=== PATIENT | female | born 1940 | race Caucasian/White ===

== ENCOUNTER → 2017-09-25 | Outpatient (CLI) | payer MEDICARE ==
[~2017-09-25] MED LIST: ASPI-516 CHEW; CALC1TAB55 PO; LEVO25TA4 PO; MULTTAB67 PO; NADO20TA PO; OMEGCAP PO; VITA1000 PO; [UNRECOGNIZED DRUG - CODE] PO
--- NOTE | 2017-09-25 11:39 | RADRPT ---
EXAM DATE/TIME: 09/25/2017 09:16 [facility] COMPARISON : No previous studies available for comparison. INDICATIONS : Evaluate patient for biopsy and ablation. CONSULT: 76 year-old female with history of stage IV colon CA with liver metastases and rising CEA levels. CT examination of 08/09/2017 and MRI examination of 08/10/2017 from [facility] demonstrates a solita ry 2.6 cm mass in anterior segment 8 of the liver near the dome. This lesion is amenable to percutane ous biopsy and ablation. Patient will be scheduled for a measure radiology clinic visit to discuss tr eatment options. Audie Root MD on September 25, 2017 at 11:22 Board Certified Radiologist. This report was verified electronically.
== END ==
LOC: HRAD 09:14
PROVIDERS: ATTEND Internal Medicine
DX: C18.9 Malignant neoplasm of colon, unspecified (principal); C78.7 Secondary malignant neoplasm of liver and intrahepatic bile duct

== ENCOUNTER 2017-09-26 13:44 | Day surgery (SDC) | payer MEDICARE ==
[2017-09-26 14:02] VITALS: BP 161/74; PULSE 78; RESP 20; TEMP 98.5; O2SAT 97
[2017-09-26] MEDS ORDERED: LEVO25TA4 PO (14:15)
[2017-09-26] MEDS ORDERED: ASPI-516 CHEW (14:15)
[2017-09-26] MEDS ORDERED: [UNRECOGNIZED DRUG - CODE] PO (14:15)
[2017-09-26] MEDS ORDERED: VITA1000 PO (14:15)
[2017-09-26] MEDS ORDERED: OMEGCAP PO (14:15)
[2017-09-26] MEDS ORDERED: MULTTAB67 PO (14:15)
[2017-09-26] MEDS ORDERED: NADO20TA PO (14:15)
[2017-09-26] MEDS ORDERED: CALC1TAB55 PO (14:15)
--- NOTE | 2017-09-26 15:51 | RADRPT ---
EXAM DATE/TIME: 09/26/2017 00:00 [facility] COMPARISON : INDICATIONS : consult for liver ablation OBJECTIVE: Temperature: 98.5 Heart Rate: 20 Blood Pressure: 161/74 Respiratory: 18 Oximetry: 97 PNEUMONIA VACCINE: YES HISTORY OF PRESENT ILLNESS: 76 year-old female with history of stage IV colon CA diagnosed in 2015 status post resection with madeline er metastasis in remission following chemotherapy with now rising CEA levels. CT examination of 2016 and MRI examination of 08/10/2017 from [facility] demonstrates a solitary 2.6 cm mass in an terior segment of the liver near the dome. Patient is without complaints and maintains a high frontal status. PAST MEDICAL HISTORY : 1. Carcinoma, colon. 2. Metastatic, liver. 3. Hypothyriodism. 4. Hypertension. 5. PAST SURGICAL HISTORY : 1. colon resection 2. ectopic 3. cataract sx 4. c section SOCIAL HISTORY : No alcohol use. Tobacco;none. ALLERGIES: NKDA 1. [id number] mg q.d. 2. nadolol 20 mg q.d. 3. amlodipine/valsartan 5/160 mg q.d. 4. levothyroxine 25 mcg q.d. PHYSICAL EXAMINATION: General: No acute distress Heart: No significant murmur. Lungs: Clear to auscultation bilaterally Abdomen: Soft, nontender nondistended. IMAGING STUDIES: CT and MRI examination from [facility] were reviewed. These demonstrate a solitary 2.6 and a ma ss in anterior segment of the liver near the dome. No evidence for significant extra hepatic disease. ASSESSMENT: 76-year-old female with history of stage IV lung CA with liver metastases and new 2.6 cm solitary mas s in segment 8 of the liver. She has an excellent functional status. This lesion is somewhat challeng ing given high location near the dome with potential for diaphragm/lung injury. Otherwise, this mass is amenable to percutaneous biopsy and ablation. Extensive discussion regarding the risks and benefits of the microwave ablation. All questions were a nswered. PLAN: CT-guided biopsy and microwave ablation. Request for PET/CT examination was initially denied. Patient 's son indicates possible approval on appeal. If patient is able to obtain a PET/CT exam in a timely fashion, would defer the ablation pending the PET/CT results. . TIME SPENT: 25 minutes. Audie Root MD on September 26, 2017 at 14:34 Board Certified Radiologist. This report was verified electronically.
== END 2017-09-26 15:34 | disposition home or self-care (01) ==
LOC: HROP 13:44 → HRIP 13:47 → HROP 15:34
PROVIDERS: ATTEND Internal Medicine
DX: C78.7 Secondary malignant neoplasm of liver and intrahepatic bile duct (principal); C18.9 Malignant neoplasm of colon, unspecified; I10 Essential (primary) hypertension

== ENCOUNTER 2017-10-08 07:10 | Observation (INO) | payer MEDICARE ==
[~2017-10-08] VITALS: Ht 162.6 cm; Wt 62.0 kg
[2017-10-08] MEDS ORDERED: LIDOCAINE HCL 1% 20 ML VIAL SQ ONE (07:11)
[2017-10-08 07:29] VITALS: BP 173/83; PULSE 68; RESP 20; TEMP 98.4; O2SAT 97
[2017-10-08] MEDS ORDERED: LACTATED RINGER'S 1000 ML IV PRN (08:30)
[2017-10-08] MEDS ORDERED: CHLORHEXIDINE GLUCONATE 2 % 1 PACK (2 CLOTHS) TOPICAL PRN (08:30)
[2017-10-08] MEDS ORDERED: METOPROLOL TARTRATE 25 MG TAB PO PRN (08:30)
[2017-10-08] MEDS ORDERED: SODIUM CHLOR 0.9% 1000 ML IV SCH (08:30)
[2017-10-08] MEDS ORDERED: POVIDONE IODINE 5% (ANTISEPSIS KIT) 4 APPLICATIONS EACH NARE PRN (08:30)
[2017-10-08] MEDS ORDERED: IMPLANTED VASCULAR ACCESS DEVICE/PORT - SODIUM CHLORIDE FLUSH IV FLUSH SCH (08:30)
[2017-10-08] MEDS ORDERED: SODIUM CHLORID 0.9% 500 ML IV PRN (08:30)
[2017-10-08] MEDS ORDERED: IMPLANTED VASCULAR ACCESS DEVICE/PORT - SODIUM CHLORIDE FLUSH PRN IV FLUSH (08:30)
[2017-10-08] MEDS ORDERED: POTASSIUM CHLORIDE 20 MEQ CONTROLLED RELEASE TAB PO ONE (08:30)
[2017-10-08] MEDS ORDERED: SODIUM CHLORIDE 2 ML FLUSH PRN IV FLUSH (08:30)
[2017-10-08 08:56] LABS: AUTOMATED NEUTROPHIL # 7.8 TH/MM3 (1.8-7.7); BASOPHIL % 0.4 % (0.0-2.0); EOSINOPHIL % 0.4 % (0.0-4.0); HEMATOCRIT 39.3 % (35.0-46.0); HEMOGLOBIN 13.6 GM/DL (11.6-15.3); LYMPH % 12.1 % (9.0-44.0); LYMPHOCYTE # 1.2 TH/MM3 (1.0-4.8); MEAN CELL VOLUME 94.7 FL (80.0-100.0); MEAN CORPUSCULAR HEMOGLOBIN 32.8 PG (27.0-34.0); MEAN CORPUSCULAR HGB CONC 34.7 % (32.0-36.0); MEAN PLATELET VOLUME 7.8 FL (7.0-11.0); MONO % 7.1 % (0.0-8.0); MONOCYTE # 0.7 TH/MM3 (0-0.9); PLATELET COUNT 205 TH/MM3 (150-450); RED BLOOD COUNT 4.15 MIL/MM3 (4.00-5.30); RED CELL DISTRIBUTION WIDTH 13.1 % (11.6-17.2); WHITE BLOOD COUNT 9.7 TH/MM3 (4.0-11.0)
[2017-10-08] MEDS: SODIUM CHLORIDE 2 ML FLUSH BID IV FLUSH SCH ×2 (09:00→22:17)
[2017-10-08 09:05] LABS: PROTHROMBIN TIME - PATIENT 10.3 SEC (9.8-11.6)
--- NOTE | 2017-10-08 14:36 | EKG ---
Date Performed: 10/08/2017 Time Performed: 08:07:03 PTAGE: 76 years EKG: Sinus rhythm POSSIBLE RIGHT VENTRICULAR CONDUCTION DELAY BORDERLINE ECG NO PREVIOUS TRACING DOCTOR: Amos Dobson Interpretating Date/Time 10/08/2017 14:30:46
[2017-10-08] MEDS ORDERED: HYDROmorphone HCL 2 MG TAB PO PRN (14:45)
--- NOTE | 2017-10-08 14:48 | PD.RAD ---
Post CT Procedure Prog Note Pre Procedure Diagnosis: (1) Metastases to the liver Post Procedure Diagnosis: (1) Metastases to the liver Procedure Date: Oct 08, 2017 Supervising Radiologist: Audie Root Anesthesia: Analgesia Plan of Activity Patient to Unit: PACU Patient Condition: Good See PACS Report for procedural detail/treatment Audie Root MD Oct 08, 2017 14:48
[2017-10-08] MEDS ORDERED: MIDAZOLAM HCL 2 MG/2 ML VIAL ONE (15:15)
[2017-10-08] MEDS ORDERED: PILL SPLITTER OTHER PRN (15:15)
[2017-10-08] MEDS ORDERED: DO NOT ADM ANY ANTICOAGULANT DRUGS PRN (16:00)
--- NOTE | 2017-10-08 17:04 | RADRPT ---
EXAM DATE/TIME: 10/08/2017 12:50 [facility] COMPARISON: No previous studies available for comparison. INDICATIONS : 76-year-old female with history of stage IV colon CA in remission with new solitary 2.6 cm PET + mass in the anterior segment of the liver near the dome. Anesthesia and pain control was provided by the Anesthesia department. Prophylactic antibiotics were administered with appropriate pre-procedure timing. DEVICE(S): 1.) microwave probe MEDICAL HISTORY : Carcinoma, colon. Metastatic, liver. SURGICAL HISTORY : Colon resection ENCOUNTER: Initial ACUITY: 1 day PAIN SCORE: 0/10 LOCATION: Right lateral PROCEDURE : CT guided microwave ablation of anterior segment right hepatic mass The risks, benefits and alternatives to the procedure were explained and verbal and written consent w as obtained. Using automated exposure control and adjustment of the mA and/or kV according to patien t size, radiation dose was kept as low as reasonably achievable to obtain optimal diagnostic quality images. The site was prepped in sterile fashion. Full sterile technique was used, including cap, ma sk, sterile gloves and gown and a large sterile sheet. Hand hygiene and 2% chlorhexidine and/or beta dine/alcohol prep was utilized per protocol for cutaneous antisepsis. The skin and subcutaneous tiss ues were infiltrated with local anesthetic solution. DICOM format image data is available electronic ally for review and comparison. Patient was placed in slight varus position. Multiple repositionings of the gantry and patient were r equired to identify an appropriate window. A 17 gauge guide needle was advanced to the hepatic margin and approximately 180 cc of sterile saline was injected through the needle to either dissect a windo w in the cardiophrenic angle. Next, microwave ablation probe was advanced using an anterior cardiophr enic angle approach into the mass. Next, the mass was ablated at 100 W for 10 minutes with images obt ained at 5 minutes and 10 minutes demonstrating inappropriate progression of the ablation zone. The p robe was then retracted approximately 2 cm and an additional ablation was performed for 5 minutes. Pr obe was then removed. Followup CT examination demonstrated no pneumothorax, hematoma or other complex . CONCLUSION: 1. Technically challenging but successful microwave ablation of 2.6 cm mass in the anterior segment 8 of the liver. 18 gauge core biopsy of the mass was also performed during the procedure. Please see C T biopsy report for details. Audie Root MD on October 08, 2017 at 15:43 Board Certified Radiologist. This report was verified electronically.
--- NOTE | 2017-10-08 17:06 | RADRPT ---
EXAM DATE/TIME: 10/08/2017 12:50 [facility] COMPARISON: No previous studies available for comparison. INDICATIONS : History of colon CA with new 2.6 cm segment 8 hepatic mass. Previously, this was kRAS negative . Hannah ent presents for ablation and biopsy. BIOPSY SITE: liver MEDICATION(S): Anesthesia and pain control was provided by the Anesthesia department. Prophylactic antibiotics were administered with appropriate pre-procedure timing. DEVICE(S): 1.) 18 gauge bard MEDICAL HISTORY : Carcinoma, colon. Metastatic, liver. SURGICAL HISTORY : Colon resection ENCOUNTER: Initial ACUITY: 1 day PAIN SCORE: 0/10 LOCATION: Right upper quadrant A total of two core specimen(s) were obtained and sent to the laboratory for pathologic evaluation. PROCEDURE: 1. CT guided liver biopsy. Prior to the procedure informed consent was obtained. Any appropriate prior imaging studies were rev iewed. Using automated exposure control and adjustment of the mA and/or kV according to patient size, radiat ion dose was kept as low as reasonably achievable to obtain optimal diagnostic quality images. DICOM format image data is available electronically for review and comparison. The site was prepped in a sterile fashion. Full sterile technique was used, including cap, mask, anthony rile gloves and gown and a large sterile sheet. Hand hygiene and 2% chlorhexidine and/or betadine/al cohol prep was utilized per protocol for cutaneous antisepsis. The skin and subcutaneous tissues wer e infiltrated with local anesthetic solution. With CT guidance the previously identified target was localized. Biopsy was performed using the presc ribed needle as above. In total, two 18 gauge core biopsies were obtained. Adequate hemostasis was o btained with compression at the puncture site. Follow-up CT scan reveals no hemorrhage. The patient tolerated the procedure well and there were no complications. The patient was returned to the Radiology Outpatient Unit in stable condition. CONCLUSION: Uncomplicated CT guided biopsy. Audie Root MD on October 08, 2017 at 17:02 Board Certified Radiologist. This report was verified electronically.
[2017-10-08] MEDS ORDERED: ONDANSETRON HCL 4 MG/2 ML VIAL IV PUSH PRN (17:30)
[2017-10-08 17:45] VITALS: BP 174/70; PULSE 58; RESP 18; TEMP 95.6; O2SAT 96
--- NOTE | 2017-10-08 17:45 | RADRPT ---
EXAM DATE/TIME: 10/08/2017 15:57 [facility] COMPARISON: CT NEEDLE BIOPSY LIVER, October 08, 2017, 12:50. INDICATIONS : Pneumothorax. MEDICAL HISTORY : Carcinoma, colon. SURGICAL HISTORY : Infusaport. ENCOUNTER: Initial ACUITY: 1 day PAIN SCORE: 0/10 LOCATION: Right chest FINDINGS: A single frontal expiratory view of the chest was performed. The lungs are symmetrically aerated and clear. No evidence of pneumothorax. Mediastinal structures are in the midline. There is a left-sided [id number] in place. Bony structures are grossly intact. CONCLUSION: No evidence of pneumothorax. Roney Lr MD on October 08, 2017 at 17:41 Board Certified Radiologist. This report was verified electronically.
--- NOTE | 2017-10-08 18:47 | HHI.HP ---
[facility] Rona Burleson MD Admission Diagnosis CT guided liver biopsy with microwave ablation Diagnoses: (1) Liver mass (2) HTN (hypertension) Chief Complaint: liver biopsy Travel History International Travel<30 Days: No Contact w/Intl Traveler <30 Da: No Traveled to Known Affected Are: No History of Present Illness 76-year-old female with past medical history significant for hypothyroidism, colon cancer, and hypertension. Patient reports that she was first diagnosed with colon cancer in 2014 and underwent partial colon resection in 2014 followed by chemotherapy in 2016. She follows up with her oncologist who had been checking her CEA levels. There was an increase in CEA levels along with PET scan recently done showing activity in liver. She underwent liver biopsy with microwave ablation today by interventional radiology. She has been kept overnight for monitoring. Patient reports some nausea and upset stomach believes this might be related to anesthesia she also complains of bad taste in her mouth. She would like to get something to eat to see if this will settle her stomach. She denies any fevers, chills, abdominal pain, or bleeding. She voices no acute concerns at this moment. Review of Systems Except as stated in HPI: all other systems reviewed are Neg Past Family Social History Past Medical History Stage IV colon CA diagnosed 2014 partial colon removal with chemo HTN Hypothyroidism Past Surgical History Partial colon resection 2015 Port placement cataract surgery Reported Medications Reported Meds & Active Scripts Active Reported Multiple Vitamin 1 Tab 1 Tab PO DAILY Warren-3 Fish Oil/Vitamin (Fish Oil-Cholecalciferol) 1,000-1,000 Mg Cap 1 Cap PO DAILY Calcium 500 +D3 (Calcium Carbonate-Cholecalciferol) 500-600 Mg-Unit Tab 1 Tab PO BID Vitamin D-1000 (Cholecalciferol) 1,000 Unit Tab 1,000 Units PO DAILY Levothyroxine (Levothyroxine Sodium) 25 Mcg Tab 25 Mcg PO DAILY Amlodipine-Valsartan 5-160 Mg Tab 1 Tab PO DAILY Nadolol 20 Mg Tab 20 Mg PO DAILY Aspirin 81 Mg Chew 81 Mg CHEW DAILY Allergies: Coded Allergies: No Known Allergies (Unverified , 2//18) Active Ordered Medications Current Medications Medications (Trade) Dose Ordered Sig/Rosa Maria Route Start Time Stop Time Status Last Admin Sodium Chloride 1,000 ml @ 30 mls/hr Q24H IV 10/08/17 08:30 10/08/17 08:30 (NS Flush) 2 ml BID IV FLUSH 10/08/17 09:00 (NS Flush) 2 ml UNSCH PRN IV FLUSH 10/08/17 08:30 (NS Flush) 5 ml Q21D IV FLUSH 10/08/17 08:30 (Heparin Central Flush) 500 units Q21D IV FLUSH 10/08/17 08:30 (NS Flush) 5 ml UNSCH PRN IV FLUSH 10/08/17 08:30 10/08/17 17:38 (Heparin Central Flush) 250 units UNSCH PRN IV FLUSH 10/08/17 08:30 10/08/17 17:00 Lactated Ringer's 1,000 ml @ 30 mls/hr Q24H PRN IV 10/08/17 08:30 10/11/17 08:29 Sodium Chloride 500 ml @ 30 mls/hr [id number] PRN IV 10/08/17 08:30 10/11/17 08:29 (Lopressor) 25 mg [employer] PRN PO 10/08/17 08:30 10/11/17 08:29 (Betadine 5% Antisepsis Kit) 1 applic [employer] PRN EACH NARE 10/08/17 08:30 10/11/17 08:29 (Chlorhexidine 2% Cloth) 3 pack [employer] PRN TOPICAL 10/08/17 08:30 10/11/17 08:29 (Dilaudid) 1 mg Q6H PRN PO 10/08/17 14:45 (Pill Splitter) 1 ea UNSCH PRN OTHER 10/08/17 15:15 Miscellaneous Information ALL NURSING DEPARTME... UNSCH PRN .XX 10/08/17 16:00 10/09/17 15:59 (Zofran Inj) 4 mg Q6HR PRN IV PUSH 10/08/17 17:30 10/08/17 17:38 Family History Mother: ?rectal CA Social History Tobacco use: denies Alcohol use: denies Illict drug use: denies Physical Exam Vital Signs Vital Signs Date Time Temp Pulse Resp B/P (MAP) Pulse Ox O2 Delivery O2 Flow Rate FiO2 10/08/17 17:45 95.6 58 18 174/70 (104) 96 10/08/17 08:39 Room Air 10/08/17 07:29 98.4 68 20 173/83 (113) 97 Physical Exam GENERAL: This is a well-nourished, well-developed patient, in no apparent distress. SKIN: No rashes, ecchymoses or lesions. Cool and dry. HEAD: Atraumatic. Normocephalic. No temporal or scalp tenderness. EYES: Pupils equal round and reactive. Extraocular motions intact. No scleral icterus. No injection or drainage. ENT: Nose without bleeding, purulent drainage or septal hematoma. Throat without erythema, tonsillar hypertrophy or exudate. Uvula midline. Airway patent. NECK: Trachea midline. No JVD or lymphadenopathy. Supple, nontender, no meningeal signs. CARDIOVASCULAR: Regular rate and rhythm without murmurs, gallops, or rubs. RESPIRATORY: Clear to auscultation. Breath sounds equal bilaterally. No wheezes , rales, or rhonchi. GASTROINTESTINAL: Abdomen soft, non-tender, nondistended. No hepato-splenomegaly , or palpable masses. No guarding. MUSCULOSKELETAL: Extremities without clubbing, cyanosis, or edema. No joint tenderness, effusion, or edema noted. No calf tenderness. Negative Homans sign bilaterally. NEUROLOGICAL: Awake and alert. Cranial nerves II through XII intact. Motor and sensory grossly within normal limits. Five out of 5 muscle strength in all muscle groups. Normal speech. Laboratory Laboratory Tests Test 10/08/17 08:37 White Blood Count 9.7 Red Blood Count 4.15 Hemoglobin 13.6 Hematocrit 39.3 Mean Corpuscular Volume 94.7 Mean Corpuscular Hemoglobin 32.8 Mean Corpuscular Hemoglobin Concent 34.7 Red Cell Distribution Width 13.1 Platelet Count 205 Mean Platelet Volume 7.8 Neutrophils (%) (Auto) 80.0 Lymphocytes (%) (Auto) 12.1 Monocytes (%) (Auto) 7.1 Eosinophils (%) (Auto) 0.4 Basophils (%) (Auto) 0.4 Neutrophils # (Auto) 7.8 Lymphocytes # (Auto) 1.2 Monocytes # (Auto) 0.7 Eosinophils # (Auto) 0.0 Basophils # (Auto) 0.0 CBC Comment DIFF FINAL Differential Comment Prothrombin Time 10.3 Prothromb Time International Ratio 1.0 Activated Partial Thromboplast Time 48.9 Result Diagram: 10/08/17 0837 Imaging Last Impressions Chest X-Ray 10/08/17 1600 Signed Impressions: Service Date/Time: Sunday, October 08, 2017 15:57 - CONCLUSION: No evidence of pneumothorax. Roney Lr MD Liver Biopsy CT 10/08/17 0000 Signed Impressions: Service Date/Time: Sunday, October 08, 2017 12:50 - CONCLUSION: Uncomplicated CT guided biopsy. Audie Root MD Guidance Needle Placement CT 10/08/17 0000 Signed Impressions: Service Date/Time: Sunday, October 08, 2017 12:50 - CONCLUSION: 1. Technically challenging but successful microwave ablation of 2.6 cm mass in the anterior segment 8 of the liver. 18 gauge core biopsy of the mass was also performed during the procedure. Please see CT biopsy report for details. MD Jada Prado VTE Risk Assessment Caprini VTE Risk Assessment: Mod/High Risk (score >= 2) Caprini Risk Assessment Model Point Value = 1 Point Value = 2 Point Value = 3 Point Value = 5 Age 41-60 Minor surgery BMI > 25 kg/m2 Swollen legs Varicose veins or History of unexplained or recurrent spontaneous Oral contraceptives or hormone replacement Sepsis (< 1 month) Serious lung disease, including pneumonia (< 1 month) Abnormal pulmonary function Acute myocardial infarction Congestive heart failure (< 1 month) History of inflammatory bowel disease Medical patient at bed rest Age 61-74 Arthroscopic surgery Major open surgery (> 45 min) Laparoscopic surgery (> 45 min) Malignancy Confined to bed (> 72 hours) Immobilizing plaster cast Central venous access Age >= 75 History of VTE Family history of VTE Factor V Leiden Prothrombin [id number] Lupus anticoagulant Anticardiolipin antibodies Elevated serum homocysteine Heparin-induced thrombocytopenia Other congenital or acquired thrombophilia Stroke (< 1 month) Elective arthroplasty Hip, pelvis, or leg fracture Acute spinal cord injury (< 1 month) Prophylaxis Regimen Total Risk Factor Score Risk Level Prophylaxis Regimen 0-1 Low Early ambulation 2 Moderate Order ONE of the following: *Sequential Compression Device (SCD) *Heparin 5000 units SQ BID 3-4 Higher Order ONE of the following medications: *Heparin 5000 units SQ TID *Enoxaparin/Lovenox 40 mg SQ daily (WT < 150 kg, CrCl > 30 mL/min) *Enoxaparin/Lovenox 30 mg SQ daily (WT < 150 kg, CrCl > 10-29 mL/min) *Enoxaparin/Lovenox 30 mg SQ BID (WT < 150 kg, CrCl > 30 mL/min) AND/OR *Sequential Compression Device (SCD) 5 or more Highest Order ONE of the following medications: *Heparin 5000 units SQ TID (Preferred with Epidurals) *Enoxaparin/Lovenox 40 mg SQ daily (WT < 150 kg, CrCl > 30 mL/min) *Enoxaparin/Lovenox 30 mg SQ daily (WT < 150 kg, CrCl > 10-29 mL/min) *Enoxaparin/Lovenox 30 mg SQ BID (WT < 150 kg, CrCl > 30 mL/min) AND *Sequential Compression Device (SCD) Assessment and Plan Assessment and Plan 76-year-old female with past medical history of colon cancer s/p colon resection & chemotherapy, HTN, and hypothyroidism. Patient has undergone CT- guided liver biopsy with microwave ablation today. Kept overnight for monitoring and observation. Liver mass Hx : CA - Patient has undergone CT-guided biopsy along with microwave ablation of 2.6 cm mass of liver. - Pathology to be forwarded to oncologist - Continue monitoring for bleeding as recommended by IR Nausea, dyspepsia - Likely related to anesthesia - Zofran IV as needed - Continue monitoring HTN, uncontrolled - Patient reports she takes Physician Certification Order for Inpatient Services The services are ordered in accordance with Medicare regulations or non- Medicare payer requirements, as applicable. In the case of services not specified as inpatient-only, they are appropriately provided as inpatient services in accordance with the 2-midnight benchmark. days is the estimated time the patient will need to remain in the hospital, assuming treatment plan goals are met and no additional complications. Faby Noe Oct 08, 2017 18:47
--- NOTE | 2017-10-08 19:13 | HHI.HP ---
[facility] Rona Burleson MD Admission Diagnosis CT guided liver biopsy with microwave ablation Diagnoses: (1) Liver mass (2) HTN (hypertension) Chief Complaint: liver biopsy Travel History International Travel<30 Days: No Contact w/Intl Traveler <30 Da: No Traveled to Known Affected Are: No History of Present Illness 76-year-old female with past medical history significant for hypothyroidism, colon cancer, and hypertension. Patient reports that she was first diagnosed with colon cancer in 2014 and underwent partial colon resection in 2014 followed by chemotherapy in 2016. She follows up with her oncologist who had been checking her CEA levels. There was an increase in CEA levels along with PET scan recently done showing activity in liver. She underwent liver biopsy with microwave ablation today by interventional radiology. She has been kept overnight for monitoring. Patient reports some nausea and upset stomach believes this might be related to anesthesia she also complains of bad taste in her mouth. She would like to get something to eat to see if this will settle her stomach. She denies any fevers, chills, abdominal pain, or bleeding. She voices no acute concerns at this moment. Review of Systems Except as stated in HPI: all other systems reviewed are Neg Past Family Social History Past Medical History Stage IV colon CA diagnosed 2015 partial colon removal with chemo HTN Hypothyroidism Past Surgical History Partial colon resection 2015 Port placement cataract surgery Allergies: Coded Allergies: No Known Allergies (Unverified , 10/08/17) Family History Mother: ?rectal CA Social History Tobacco use: denies Alcohol use: denies Illict drug use: denies Physical Exam Vital Signs Vital Signs Date Time Temp Pulse Resp B/P (MAP) Pulse Ox O2 Delivery O2 Flow Rate FiO2 10/08/17 17:45 95.6 58 18 174/70 (104) 96 10/08/17 15:10 97.8 73 18 184/81 (115) 100 Nasal Cannula 2 10/08/17 08:39 Room Air 10/08/17 07:29 98.4 68 20 173/83 (113) 97 Physical Exam GENERAL: This is a well-nourished, well-developed patient, in no apparent distress. SKIN: No rashes, ecchymoses or lesions. Right upper abdomen gauze dressing dry and intact. Cool and dry. HEAD: Atraumatic. Normocephalic. No temporal or scalp tenderness. EYES: Pupils equal round and reactive. No scleral icterus. No injection or drainage. ENT: Nose without bleeding, purulent drainage or septal hematoma. Airway patent. NECK: Trachea midline. No JVD or lymphadenopathy. Supple, nontender, no meningeal signs. CARDIOVASCULAR: Regular rate and rhythm without murmurs, gallops, or rubs. RESPIRATORY: Clear to auscultation. Breath sounds equal bilaterally. No wheezes , rales, or rhonchi. GASTROINTESTINAL: Abdomen soft, non-tender, nondistended. No guarding. Normal active bowel sounds in all quadrants MUSCULOSKELETAL: Extremities without clubbing, cyanosis, or edema. No joint tenderness, effusion, or edema noted. No calf tenderness. NEUROLOGICAL: Awake and alert. Cranial nerves grossly intact. Motor and sensory grossly within normal limits. Five out of 5 muscle strength in all muscle groups. Normal speech. Laboratory Laboratory Tests Test 10/08/17 08:37 White Blood Count 9.7 Red Blood Count 4.15 Hemoglobin 13.6 Hematocrit 39.3 Mean Corpuscular Volume 94.7 Mean Corpuscular Hemoglobin 32.8 Mean Corpuscular Hemoglobin Concent 34.7 Red Cell Distribution Width 13.1 Platelet Count 205 Mean Platelet Volume 7.8 Neutrophils (%) (Auto) 80.0 Lymphocytes (%) (Auto) 12.1 Monocytes (%) (Auto) 7.1 Eosinophils (%) (Auto) 0.4 Basophils (%) (Auto) 0.4 Neutrophils # (Auto) 7.8 Lymphocytes # (Auto) 1.2 Monocytes # (Auto) 0.7 Eosinophils # (Auto) 0.0 Basophils # (Auto) 0.0 CBC Comment DIFF FINAL Differential Comment Prothrombin Time 10.3 Prothromb Time International Ratio 1.0 Activated Partial Thromboplast Time 48.9 Result Diagram: 10/08/17 0837 Caprini VTE Risk Assessment Caprini VTE Risk Assessment: Mod/High Risk (score >= 2) Caprini Risk Assessment Model Point Value = 1 Point Value = 2 Point Value = 3 Point Value = 5 Age 41-60 Minor surgery BMI > 25 kg/m2 Swollen legs Varicose veins or History of unexplained or recurrent spontaneous Oral contraceptives or hormone replacement Sepsis (< 1 month) Serious lung disease, including pneumonia (< 1 month) Abnormal pulmonary function Acute myocardial infarction Congestive heart failure (< 1 month) History of inflammatory bowel disease Medical patient at bed rest Age 61-74 Arthroscopic surgery Major open surgery (> 45 min) Laparoscopic surgery (> 45 min) Malignancy Confined to bed (> 72 hours) Immobilizing plaster cast Central venous access Age >= 75 History of VTE Family history of VTE Factor V Leiden Prothrombin [id number] Lupus anticoagulant Anticardiolipin antibodies Elevated serum homocysteine Heparin-induced thrombocytopenia Other congenital or acquired thrombophilia Stroke (< 1 month) Elective arthroplasty Hip, pelvis, or leg fracture Acute spinal cord injury (< 1 month) Prophylaxis Regimen Total Risk Factor Score Risk Level Prophylaxis Regimen 0-1 Low Early ambulation 2 Moderate Order ONE of the following: *Sequential Compression Device (SCD) *Heparin 5000 units SQ BID 3-4 Higher Order ONE of the following medications: *Heparin 5000 units SQ TID *Enoxaparin/Lovenox 40 mg SQ daily (WT < 150 kg, CrCl > 30 mL/min) *Enoxaparin/Lovenox 30 mg SQ daily (WT < 150 kg, CrCl > 10-29 mL/min) *Enoxaparin/Lovenox 30 mg SQ BID (WT < 150 kg, CrCl > 30 mL/min) AND/OR *Sequential Compression Device (SCD) 5 or more Highest Order ONE of the following medications: *Heparin 5000 units SQ TID (Preferred with Epidurals) *Enoxaparin/Lovenox 40 mg SQ daily (WT < 150 kg, CrCl > 30 mL/min) *Enoxaparin/Lovenox 30 mg SQ daily (WT < 150 kg, CrCl > 10-29 mL/min) *Enoxaparin/Lovenox 30 mg SQ BID (WT < 150 kg, CrCl > 30 mL/min) AND *Sequential Compression Device (SCD) Assessment and Plan Problem List: (1) Liver mass ICD Code: R16.0 - Hepatomegaly, not elsewhere classified (2) HTN (hypertension) ICD Code: I10 - Essential (primary) hypertension Assessment and Plan 76-year-old female with past medical history of colon cancer s/p colon resection & chemotherapy, HTN, and hypothyroidism. Patient has undergone CT- guided liver biopsy with microwave ablation today. Kept overnight for monitoring and observation. Liver mass Hx : CA - Patient has undergone CT-guided biopsy along with microwave ablation of 2.6 cm mass of liver. - Pathology to be forwarded to oncologist - Continue monitoring for bleeding as recommended by IR - Pain management with by mouth Dilaudid. Nausea, dyspepsia - Likely related to anesthesia - Zofran IV as needed - Continue monitoring HTN, uncontrolled - Patient reports she takes Nadolol HS - Will resume Nadolol HS dose, can use home med once verified by pharmacy of this is not available here. - Resume home dose amlodipine and valsartan - Will add clonidine when necessary for SBP >160 or DBP >90 - Monitor BP Hypothyroidism -Resume patient's dose of levothyroxine DVT prophylaxis - SCDs for now secondary to liver biopsy. Faby Noe Oct 08, 2017 19:13
[2017-10-08] MEDS ORDERED: cloNIDine HCL 0.1 MG TAB PO PRN (19:15)
[2017-10-08 20:00] VITALS: BP 138/63; PULSE 73; RESP 16; TEMP 96.5; O2SAT 94
[2017-10-08] MEDS ORDERED: NADOLOL 20 MG TAB PO SCH (21:00)
[2017-10-09 00:44] VITALS: BP 112/56; PULSE 72; RESP 16; TEMP 97.4; O2SAT 95
[2017-10-09 04:00] VITALS: BP 129/61; PULSE 71; RESP 16; TEMP 97.9; O2SAT 93
[2017-10-09] MEDS ORDERED: LEVOTHYROXINE SODIUM 25 MCG TAB PO SCH (06:00)
--- NOTE | 2017-10-09 06:08 | RADRPT ---
EXAM DATE/TIME: 10/09/2017 05:35 [facility] COMPARISON: CT NEEDLE BIOPSY LIVER, October 08, 2017, 12:50. CHEST EXPIRATION ONLY, October 08, 2017, 15:57. INDICATIONS : Evaluate for right pneumothorax. MEDICAL HISTORY : Carcinoma, colon. SURGICAL HISTORY : Infusaport ENCOUNTER: Subsequent ACUITY: 2 days PAIN SCORE: 0/10 LOCATION: Bilateral chest FINDINGS: Upright expiratory view of the chest demonstrates a normal-sized cardiac silhouette. Left chest wall [id number] remains present. There is atelectasis at the lung bases related to expiratory technique . No pneumothorax or pleural effusion is identified. The bones and soft tissues demonstrate no acute finding. CONCLUSION: No pneumothorax or acute abnormality is identified. Chava Muse MD on October 09, 2017 at 6:05 Board Certified Radiologist. This report was verified electronically.
[2017-10-09 08:00] VITALS: BP 137/65; PULSE 68; RESP 18; TEMP 97.1; O2SAT 97
--- NOTE | 2017-10-09 08:26 | HHI.PR ---
Subjective Remarks in no acute distress. has minimal pain to the RUQ on deep inspiration. otherwise no other complaints. Objective Vitals Vital Signs Date Time Temp Pulse Resp B/P (MAP) Pulse Ox O2 Delivery O2 Flow Rate FiO2 10/09/17 08:00 97.1 68 18 137/65 (89) 97 10/09/17 04:00 97.9 71 16 129/61 (83) 93 10/09/17 00:44 97.4 72 16 112/56 (74) 95 10/08/17 22:15 Room Air 10/08/17 20:00 96.5 73 16 138/63 (88) 94 10/08/17 17:45 95.6 58 18 174/70 (104) 96 10/08/17 17:00 97.9 54 17 160/72 (101) 100 Room Air 10/08/17 16:45 56 18 158/70 (99) 100 Room Air 10/08/17 16:30 56 18 143/67 (92) 100 Room Air 10/08/17 16:15 58 17 140/63 (88) 100 Room Air 10/08/17 16:00 55 17 156/71 (99) 100 Room Air 10/08/17 15:45 55 17 156/71 (99) 100 Nasal Cannula 2 10/08/17 15:30 54 18 155/57 (89) 100 Nasal Cannula 2 10/08/17 15:15 60 18 152/67 (95) 100 Nasal Cannula 2 10/08/17 15:10 97.8 73 18 184/81 (115) 100 Nasal Cannula 2 10/08/17 08:39 Room Air I/O 10/08/17 10/08/17 10/08/17 10/09/17 10/09/17 10/09/17 07:00 15:00 23:00 07:00 15:00 23:00 Intake Total 800 ml Output Total 400 ml Balance 800 ml -400 ml Intake Other 800 ml Output Urine Total 400 ml Result Diagram: 10/08/17 0837 Imaging Last Impressions Chest X-Ray 10/09/17 0600 Signed Impressions: Service Date/Time: Monday, October 09, 2017 05:35 - CONCLUSION: No pneumothorax or acute abnormality is identified. Chava Muse MD Liver Biopsy CT 10/08/17 0000 Signed Impressions: Service Date/Time: Sunday, October 08, 2017 12:50 - CONCLUSION: Uncomplicated CT guided biopsy. Audie Root MD Guidance Needle Placement CT 10/08/17 0000 Signed Impressions: Service Date/Time: Sunday, October 08, 2017 12:50 - CONCLUSION: 1. Technically challenging but successful microwave ablation of 2.6 cm mass in the anterior segment 8 of the liver. 18 gauge core biopsy of the mass was also performed during the procedure. Please see CT biopsy report for details. Audie Root MD Objective Remarks GENERAL: This is a well-nourished, well-developed patient, in no apparent distress. CARDIOVASCULAR: Regular rate and regular rhythm without murmurs, gallops, or rubs. RESPIRATORY: Clear to auscultation. Breath sounds equal bilaterally. No wheezes , rales, or rhonchi. GASTROINTESTINAL: Abdomen soft, non-tender, nondistended. Normal, active bowel sounds MUSCULOSKELETAL: Extremities without clubbing, cyanosis, or edema. NEURO: Alert & Oriented x4 to person, place, time, situation. Moves all ext x4 Medications and IVs Inpatient Medications Amlodipine Besylate (Norvasc) 5 mg DAILY PO ; Start 10/09/17 at 09:00; Stop at 09:00; Status DC Chlorhexidine Gluconate (Chlorhexidine 2% Cloth) 3 pack [employer] PRN TOPICAL SEE LABEL COMMENTS; Start 10/08/17 at 08:30; Stop 10/11/17 at 08:29 Clonidine (Catapres) 0.1 mg Q6H PRN PO SBP>160, DBP>90; Start 10/08/17 at 19:15 Heparin Sodium (Porcine) (Heparin Central Flush) 250 units UNSCH PRN IV FLUSH SEE LABEL COMMENTS Last administered on 10/08/17at 17:00; Start 10/08/17 at 08:30 Hydromorphone HCl (Dilaudid) 1 mg Q6H PRN PO Pain 1-10 post liver biopsy; Start 10/08/17 at 14:45 Lactated Ringer's 1,000 ml @ 30 mls/hr Q24H PRN IV SEE LABEL COMMENTS; Start at 08:30; Stop 10/11/17 at 08:29 Levothyroxine Sodium (Synthroid) 25 mcg DAILY@0600 PO Last administered on at 05:22; Start 10/09/17 at 06:00 Metoprolol Tartrate (Lopressor) 25 mg [employer] PRN PO SEE LABEL COMMENTS; Start 10/08/17 at 08:30; Stop 10/11/17 at 08:29 Miscellaneous (Pill Splitter) 1 ea UNSCH PRN OTHER SEE LABEL COMMENTS; Start at 15:15 Miscellaneous Information ALL NURSING DEPARTME... UNSCH PRN .XX SEE LABEL COMMENTS; Start 10/08/17 at 16:00; Stop 10/09/17 at 15:59 Nadolol (Corgard) 20 mg HS PO Last administered on 10/08/17at 21:42; Start at 21:00 Non-Formulary Medication 1 tab DAILY PO ; Start 10/09/17 at 09:00; Stop 10/09/17 at 09:00; Status DC Ondansetron HCl (Zofran Inj) 4 mg Q6HR PRN IV PUSH nausea Last administered on 10/08/17at 17:38; Start 10/08/17 at 17:30 Patient Own Medication PT OWN MED: AMLODIPINE/ VALSARTAN 5/160... DAILY PO ; Start 10/09/17 at 09:00 Povidone Iodine (Betadine 5% Antisepsis Kit) 1 applic [employer] PRN EACH NARE SEE LABEL COMMENTS; Start 10/08/17 at 08:30; Stop 10/11/17 at 08:29 Sodium Chloride 500 ml @ 30 mls/hr [id number] PRN IV SEE LABEL COMMENTS; Start 10/08/17 at 08:30; Stop 10/11/17 at 08:29 Sodium Chloride (NS Flush) 5 ml UNSCH PRN IV FLUSH SEE LABEL COMMENTS Last administered on 10/08/17at 17:38; Start 10/08/17 at 08:30 Valsartan (Diovan) 160 mg DAILY PO ; Start 10/09/17 at 09:00; Stop 10/09/17 at 09: 00; Status DC A/P Problem List: (1) Liver mass ICD Code: R16.0 - Hepatomegaly, not elsewhere classified (2) HTN (hypertension) ICD Code: I10 - Essential (primary) hypertension Assessment and Plan Liver mass Hx : CA - Patient has undergone CT-guided biopsy along with microwave ablation of 2.6 cm mass of liver. - Pathology to be forwarded to oncologist Nausea, dyspepsia- has improved. - Likely related to anesthesia HTN, has much improved. -resume home meds upon discharge. Hypothyroidism -Resumed patient's dose of levothyroxine DVT prophylaxis - SCDs for now secondary to liver biopsy. Discharge Planning dc home today- if ok with IR. see med list. f/u; pcp and oncology. d/w the patient. Carey Whitley MD Oct 09, 2017 08:26
[2017-10-09] MEDS ORDERED: amLODIPine BESYLATE 5 MG TAB PO SCH (09:00)
[2017-10-09] MEDS ORDERED: VALSARTAN PO SCH (09:00)
[2017-10-09] MEDS ORDERED: NON-FORMULARY DRUG (Amlodipine-Valsartan 1 TAB) PO SCH (09:00)
[2017-10-09] MEDS ORDERED: VALSARTAN 160 MG TAB PO SCH (09:00)
[2017-10-09] MEDS ORDERED: AMLODIPINE PO SCH (09:00)
[2017-10-09] MEDS ORDERED: ASPI-516 CHEW (10:07)
[2017-10-09] MEDS: SODIUM CHLORIDE 2 ML FLUSH BID IV FLUSH SCH (10:15)
== END 2017-10-09 12:04 | disposition home or self-care (01) ==
LOC: HSDC 07:10 → HRIP 07:11 → HSDC 14:46 → N07A 17:16
PROVIDERS: ADMIT Internal Medicine; ATTEND Internal Medicine
DX: C78.7 Secondary malignant neoplasm of liver and intrahepatic bile duct (principal); C18.9 Malignant neoplasm of colon, unspecified; I10 Essential (primary) hypertension; E03.9 Hypothyroidism, unspecified; Z92.21 Personal history of antineoplastic chemotherapy; Z90.49 Acquired absence of other specified parts of digestive tract
CPT/HCPCS: 47000; 47382; 71045; 77012; 77013; 85025; 85610; 85730; 88307; 88341; 88342; 93005; G0378; J1642; J2250; J2405; J3010; J7030

== ENCOUNTER 2017-10-15 13:20 | Day surgery (SDC) | payer MEDICARE ==
[2017-10-15 13:45] VITALS: BP 163/69; PULSE 77; RESP 20; TEMP 98.7; O2SAT 97
--- NOTE | 2017-10-16 16:29 | RADRPT ---
EXAM DATE/TIME: 10/15/2017 13:50 [facility] COMPARISON : INDICATIONS : Follow up post liver ablation OBJECTIVE: Temperature: 98.7 Heart Rate: 77 Blood Pressure: 163/69 Respiratory: 20 Oximetry: 97 HISTORY OF PRESENT ILLNESS: 76-year-old female postop day #7 status post biopsy and microwave ablation of 2.6 cm mass in the ante rior segment 8 of the liver. She has had a very uneventful postop course with only minimal referred p ain to the right shoulder during the first 48 hours following the procedure. She is now without any c omplaints doing very well. Biopsy was reviewed with the patient which confirms her diagnosis. KRAS in formation is not available at this time. ASSESSMENT: Excellent postoperative course following microwave ablation of 2.6 cm mass in the anterior segment 8 of the liver. PLAN: Recommend CT examination in approximately 8 weeks. TIME SPENT: 20 minutes. Audie Root MD on October 16, 2017 at 16:14 Board Certified Radiologist. This report was verified electronically.
== END 2017-10-15 14:20 | disposition home or self-care (01) ==
LOC: HROP 13:20 → HRIP 13:26 → HROP 14:20
PROVIDERS: ATTEND Radiology Diagnostic Radiology
DX: C78.7 Secondary malignant neoplasm of liver and intrahepatic bile duct (principal); C18.9 Malignant neoplasm of colon, unspecified; E03.9 Hypothyroidism, unspecified; I10 Essential (primary) hypertension